=== PATIENT | male | born 1940 | race Caucasian/White ===

== ENCOUNTER 2018-12-01 07:53 | Inpatient (IN) | payer OTHER ==
[~2018-12-01] VITALS: Ht 180.3 cm; Wt 98.0 kg
[~2018-12-01 07:53] MED LIST: AMLO5TAB4 PO; ASA81 PO; CARV6.2554 PO; FURO-149 PO; HUM10VIA SQ; LOP600 PO; LOSA1TAB43 PO; METF1000 PO; PRAV20TA PO
[2018-12-01] MEDS ORDERED: ALVIMOPAN 12 MG CAPSULE PO ONE (08:13)
[2018-12-01] MEDS ORDERED: CEFOXITIN 2 GM IV ONE (08:45)
[2018-12-01] MEDS ORDERED: cefOXitin 2 GM IVPB PREMIX 50 ML IV ONE (08:45)
[2018-12-01] MEDS ORDERED: NEOSTIGMINE METHYLSULFATE 1 MG/ML, 10 ML VIAL ONE (09:25)
[2018-12-01] MEDS ORDERED: ROCURONIUM BROMIDE 10 MG/ML (ZEMURON) ONE (09:25)
[2018-12-01] MEDS ORDERED: fentaNYL CITRATE 250 MCG/5 ML AMP ONE (09:25)
[2018-12-01] MEDS ORDERED: SEVOFLURANE 15 MIN GAS INH ONE (09:25)
[2018-12-01] MEDS ORDERED: LR 1,000 ML IV.SOLN IV ONE (09:25)
[2018-12-01] MEDS ORDERED: NS IRRIG SOLN 1000 ML IR ONE (09:25)
[2018-12-01] MEDS ORDERED: MORPHINE SULFATE 10MG/10ML PF AMP ONE (09:25)
[2018-12-01] MEDS ORDERED: BUPIVACAINE /DEX PF 0.75% SPINAL 2 ML AMP INJ ONE (09:25)
[2018-12-01] MEDS ORDERED: ONDANSETRON HCL 4 MG/2 ML VIAL ONE (09:25)
[2018-12-01] MEDS ORDERED: MIDAZOLAM HCL 5 MG/ML VIAL (VERSED) IV ONE (09:25)
[2018-12-01] MEDS ORDERED: GLYCOPYRROLATE 0.2 MG/ML VIAL ONE (09:25)
[2018-12-01] MEDS ORDERED: GLU500 PO (09:37)
[2018-12-01] MEDS ORDERED: LR 1,000 ML IV SCH (10:27)
[2018-12-01] MEDS ORDERED: DIPHENHYDRAMINE INJ 50 MG/ML VIAL IM PRN (10:30)
[2018-12-01] MEDS ORDERED: METOCLOPRAMIDE HCL 10 MG/2 ML VIAL IVP PRN (10:30)
[2018-12-01] MEDS ORDERED: ONDANSETRON HCL 4 MG/2 ML VIAL IVP PRN ×2 (10:30→11:30)
[2018-12-01] MEDS ORDERED: MORPHINE SULFATE 10MG/10ML PF AMP SP SCH (10:30)
[2018-12-01] MEDS ORDERED: NALOXONE HCL 0.4 MG/ML AMP (NARCAN) IVP PRN (10:30)
[2018-12-01] MEDS ORDERED: HYDROmorphone 1 MG INJ. 1 MG/ML AMPUL IVP PRN (11:30)
[2018-12-01] MEDS ORDERED: ACETAMINOPHEN 325 MG TABLET PO PRN (11:30)
[2018-12-01] MEDS ORDERED: HYDROcodone/ACETAMIN 5-325 MG TAB (NORCO/ VICODIN) PO PRN ×2 (11:30)
[2018-12-01 12:07] LABS: HEMATOCRIT 30.9 % (36-54); HEMOGLOBIN 10.1 g/dL (14.0-18.0)
[2018-12-01 12:21] LABS: ANION GAP 8 (5-15); CALCIUM 8.3 mg/dL (8.4-11.0); CHLORIDE 108 mmol/L (98-107); CREATININE 1.46 mg/dL (0.55-1.30); GLUCOSE 184 mg/dL (70-99); SODIUM SERUM 145 mmol/L (136-145); UREA NITROGEN, BLOOD 26 mg/dL (8-21)
[2018-12-01 13:14] VITALS: BP_SYST 172
[2018-12-01] MEDS ORDERED: ENALAPRILAT DIHYDRATE 1.25 MG/ML VIAL IVP PRN (13:45)
[2018-12-01] MEDS ORDERED: GLUCOSE 15 GM GEL (in 37.5 GM TUBE) PO PRN (13:45)
[2018-12-01] MEDS ORDERED: DEXTROSE 50%-WATER 50 ML DISP.SYRIN IVP PRN (13:45)
[2018-12-01 16:10] VITALS: BP_SYST 180
[2018-12-01 16:30] VITALS: BP_SYST 141
[2018-12-01] MEDS: D5/0.45 NS 1,000 ML IV SCH (17:07)
[2018-12-01] MEDS: INSULIN REGULAR, HUMAN 100 UNITS/ML, 10 ML VIAL (humuLIN R) SUBCUT PRN ×2 (17:10→20:44)
[2018-12-01 20:00] VITALS: BP_SYST 154
[2018-12-01] MEDS: FAMOTIDINE PF 20 MG/2 ML VIAL IVP SCH (20:30)
[2018-12-01] MEDS: cefOXitin SODIUM 2 GM in D5W 100 ML IV SCH (20:30)
[2018-12-01] MEDS: ALVIMOPAN 12 MG CAPSULE PO SCH (20:30)
[2018-12-01] MEDS: CARVEDILOL 6.25 MG TABLET (COREG) PO SCH (20:31)
[2018-12-02 00:42] VITALS: BP_SYST 125; BP_SYST 92
[2018-12-02] MEDS: D5/0.45 NS 1,000 ML IV SCH ×3 (03:39→20:12)
[2018-12-02 06:08] LABS: ALANINE AMINOTRANSFERASE 10 U/L (12-78); ALBUMIN 2.7 g/dL (3.4-4.8); ANION GAP 8 (5-15); ASPARTATE AMINOTRANSFERASE 15 U/L (10-37); CALCIUM 8.2 mg/dL (8.4-11.0); CHLORIDE 107 mmol/L (98-107); CREATININE 1.19 mg/dL (0.55-1.30); GLUCOSE 244 mg/dL (70-99); POTASSIUM 3.8 mmol/L (3.5-5.1); SODIUM SERUM 143 mmol/L (136-145); TOTAL BILIRUBIN 0.5 mg/dL (0.0-1.0); UREA NITROGEN, BLOOD 23 mg/dL (8-21)
[2018-12-02 06:09] LABS: BASOPHILS % (AUTO) 0.3 % (0.0-2.0); EOSINOPHILS % (AUTO) 0.1 % (0.0-4.0); HEMATOCRIT 29.2 % (36-54); HEMOGLOBIN 9.5 g/dL (14.0-18.0); LYMPHOCYTES # (AUTO) 1.2 K/uL (1.0-5.5); LYMPHOCYTES % (AUTO) 11.1 % (20.5-51.5); MEAN CORPUSCULAR HEMOGLOBIN 26 pg (27-31); MEAN CORPUSCULAR HGB CONC 33 % (32-36); MEAN CORPUSCULAR VOLUME 81 fL (79.0-98.0); MONOCYTES # (AUTO) 0.9 K/uL (0.0-1.0); MONOCYTES % (AUTO) 8.6 % (1.7-9.3); NEUTROPHILS # (AUTO) 8.4 K/uL (1.8-7.7); NEUTROPHILS % (AUTO) 79.9 % (40.0-70.0); PLATELET COUNT (AUTO) 184 K/uL (130-430); RED BLOOD CELL COUNT(AUTO) 3.59 MIL/uL (4.2-6.2); RED CELL DISTRIBUTION WIDTH 31.8 % (9.0-15.0); WHITE BLOOD COUNT (AUTO) 10.5 K/uL (4.8-10.8)
[2018-12-02] MEDS: INSULIN REGULAR, HUMAN 100 UNITS/ML, 10 ML VIAL (humuLIN R) SUBCUT PRN ×4 (06:13→20:26)
[2018-12-02 07:49] VITALS: BP_SYST 142
[2018-12-02] MEDS: cefOXitin SODIUM 2 GM in D5W 100 ML IV SCH (08:41)
[2018-12-02] MEDS: FAMOTIDINE PF 20 MG/2 ML VIAL IVP SCH ×2 (08:42→20:12)
[2018-12-02] MEDS: CARVEDILOL 6.25 MG TABLET (COREG) PO SCH ×2 (08:42→20:13)
[2018-12-02] MEDS: ALVIMOPAN 12 MG CAPSULE PO SCH ×2 (08:43→20:12)
[2018-12-02] MEDS: amLODIPine BESYLATE 5 MG TABLET PO SCH (08:43)
[2018-12-02] MEDS: ENOXAPARIN SODIUM 30 MG/0.3 ML SYRINGE SUBCUT SCH (08:49)
[2018-12-02] MEDS: METOCLOPRAMIDE HCL 10 MG/2 ML VIAL IVP SCH ×2 (11:46→17:09)
[2018-12-02 12:00] VITALS: BP_SYST 134
[2018-12-02 17:08] VITALS: BP_SYST 148
[2018-12-02 20:10] VITALS: BP_SYST 144
[2018-12-03 00:26] VITALS: BP_SYST 145
[2018-12-03] MEDS: D5/0.45 NS 1,000 ML IV SCH ×2 (03:29→13:29)
[2018-12-03] MEDS: METOCLOPRAMIDE HCL 10 MG/2 ML VIAL IVP SCH ×3 (05:51→12:00)
[2018-12-03] MEDS: INSULIN REGULAR, HUMAN 100 UNITS/ML, 10 ML VIAL (humuLIN R) SUBCUT PRN (05:57)
[2018-12-03 07:49] VITALS: BP_SYST 170
[2018-12-03] MEDS: FAMOTIDINE PF 20 MG/2 ML VIAL IVP SCH (08:47)
[2018-12-03] MEDS: CARVEDILOL 6.25 MG TABLET (COREG) PO SCH (08:48)
[2018-12-03] MEDS: ALVIMOPAN 12 MG CAPSULE PO SCH (08:48)
[2018-12-03] MEDS: amLODIPine BESYLATE 5 MG TABLET PO SCH (08:48)
[2018-12-03] MEDS: ENOXAPARIN SODIUM 30 MG/0.3 ML SYRINGE SUBCUT SCH (08:51)
[2018-12-03] MEDS ORDERED: BUPIVACAINE LIPOSOME/PF 266 MG/20 ML VIAL INFIL ONE (09:25)
[2018-12-03 11:34] VITALS: BP_SYST 154
[2018-12-03 12:00] VITALS: BP_SYST 145
== END 2018-12-03 13:10 | disposition home or self-care (01) | DRG 330 ==
LOC: SMU 07:53 → STU 13:01 → SMU 12-02 08:49
PROVIDERS: ADMIT Colon & Rectal Surgery; ATTEND Colon & Rectal Surgery
PROC: 0DNF4ZZ Release Right Large Intestine, Percutaneous Endoscopic Approach (ICD-10-PCS; 2018-12-01)
PROC: 0DTF4ZZ Resection of Right Large Intestine, Percutaneous Endoscopic Approach (ICD-10-PCS; principal; 2018-12-01 10:30)
DX: C18.2 Malignant neoplasm of ascending colon (principal); E44.0 Moderate protein-calorie malnutrition; D64.9 Anemia, unspecified; I10 Essential (primary) hypertension; E11.40 Type 2 diabetes mellitus with diabetic neuropathy, unspecified; K21.9 Gastro-esophageal reflux disease without esophagitis; M19.90 Unspecified osteoarthritis, unspecified site; E66.3 Overweight; Z79.899 Other long term (current) drug therapy; Z79.4 Long term (current) use of insulin; Z79.82 Long term (current) use of aspirin; Z87.891 Personal history of nicotine dependence; Z68.30 Body mass index [BMI] 30.0-30.9, adult
CPT/HCPCS: 36415; 80048; 80053; 82962; 85018-TC; 85025; 86886; 86900; 86901; 87081; 88307; 88309; 94010; 94760; C1727; C9290; G0378; J0694; J1650; J1815; J2250; J2274; J2405; J2710; J2765; J3010; J3490; J7060; J7120